=== PATIENT | female | born 1980 | race Asian ===

== ENCOUNTER 2016-09-10 05:42 | Day surgery (SDC) | payer OTHER ==
[~2016-09-10] VITALS: Ht 144.8 cm; Wt 55.9 kg
[2016-09-10] MEDS ORDERED: LIDOCAINE 2% (SDV) 5 ML INJ ONE (07:00)
[2016-09-10] MEDS ORDERED: CEFAZOLIN 1 GM INJ ONE (07:00)
[2016-09-10] MEDS ORDERED: PROPOFOL 200 MG INJ ONE (07:00)
[2016-09-10] MEDS ORDERED: SUCCINYLCHOLINE CHLORIDE 100 MG/5 ML SYG IV ONE (07:00)
[2016-09-10] MEDS ORDERED: SOD CHLORIDE 0.9% 1,000 ML IV SCH (07:30)
[2016-09-10 08:05] VITALS: BP 122/72; PULSE 77; RESP 16; Ht 144.8 cm; Wt 55.9 kg
[2016-09-10] MEDS ORDERED: ESCI10TA PO (09:06)
[2016-09-10] MEDS ORDERED: PANT40TA3 PO (09:07)
[2016-09-10] MEDS ORDERED: FEXO180T61 PO (09:14)
[2016-09-10] MEDS ORDERED: BUPIVACAINE 0.25%/EPI (SDV) 30 ML INJ ONE (09:34)
[2016-09-10] MEDS ORDERED: FENTAnyl 50 MCG/ML VIAL ONE (10:15)
[2016-09-10] MEDS ORDERED: MIDAZOLAM 1 MG/ML 2 ML INJ ONE (10:16)
[2016-09-10] MEDS ORDERED: HYDROmorphONE (0.2 MG/ML) 10ML SYG IV PRN (11:00)
[2016-09-10] MEDS ORDERED: ONDANSETRON 4 MG INJ IV PRN ×2 (11:00→12:00)
[2016-09-10] MEDS ORDERED: METOCLOPRAMIDE 10 MG INJ ONE (11:03)
[2016-09-10] MEDS ORDERED: ONDANSETRON 4 MG INJ ONE ×2 (11:03→12:44)
[2016-09-10] MEDS ORDERED: DEXAMETHASONE 4 MG/ML 1 ML INJ ONE (11:03)
[2016-09-10] MEDS ORDERED: BUPIVACAINE 0.25%/EPI (SDV) 30 ML INJ INJ ONE (11:47)
--- NOTE | 2016-09-10 11:57 | OPR ---
Date/Time of Note Date/Time of Note DATE: 09/10/16 TIME: 11:52 Operative Report Procedure Date: Sep 10, 2016 Preoperative Diagnosis Intraductal papilloma of right breast Postoperative Diagnosis Intraductal papilloma of right breast Operation Performed Excisional biopsy of intraductal papilloma of right breast with wire needle localization Surgeon: QUE SEAMAN MD Anesthesia: general Anesthesiologist: DIVINA COTTRELL MD Estimated Blood Loss: minimal Specimens Right breast mass excision Complications: None Pt Condition Post Procedure: stable Disposition: PACU Indications Patient is a 36-year-old female who presented to the office with a biopsy confirmed intraductal papilloma of the right breast. Patient was scheduled for definitive excisional biopsy with wire needle localization. All risks and benefits of the procedure including, but not limited to: Wound infection, excessive bleeding, postoperative seroma/hematoma formation, mass recurrence, possible need for subsequent excisions and surgeries, etc. were all explained to the patient in full detail. She fully understood and wished to proceed with the procedure. Informed consent was obtained. Operative\Procedure Findings Biopsy clip and needle contained within the specimen in its entirety. Procedure Description Patient was brought to the operating room placed supine on the operating table. Bilateral sequential compression devices were placed on both lower extremities. A dose of broad-spectrum perioperative intravenous antibiotics was given. The surgical site was marked and confirmed with the patient in the holding area. After the induction of smooth general anesthesia the patient's right breast and chest wall were prepped and draped in standard surgical fashion. The area of the prior biopsy and wire needle localization was located approximately the 10 o'clock position of the right breast 8 cm from the areolar border. After performance of the surgical timeout this area was anesthetized with 0.25% Marcaine with epinephrine. A curvilinear incision was made using a 15 blade scalpel and carried down through the skin and dermis using sharp dissection. Flaps were then raised. The wire needle was delivered through the skin into the field. A core of tissue was excised around the needle. Extending posteriorly. The specimen was then transected at its base. There was some fibrous breast tissue located medially. The entire wire needle was located within the specimen. Marking sutures were used to angelique the superior and lateral aspects of the specimen. X-ray was taken and confirmed the biopsy clip within the specimen adjacent to the needle. At this point the wound cavity was irrigated and the irrigant returned clear. Hemostasis was inspected for and noted to be total. Incision was then closed in layers using interrupted 3-0 Vicryl sutures for the dermal layer. The skin was reapproximated using a running subcuticular 4-0 Monocryl suture. Incision was cleaned and Dermabond was applied as well as a sports bra. The patient was then awoke from anesthesia and transferred to the recovery room in stable condition. All counts were correct at the end of the case 2. QUE SEAMAN MD Sep 10, 2016 11:57
[2016-09-10 11:58] VITALS: BP 138/78; PULSE 101; RESP 18
[2016-09-10] MEDS ORDERED: IBUPROFEN 600 MG TAB PO PRN (12:00)
[2016-09-10] MEDS ORDERED: KETOROLAC 30 MG INJ IV PRN (12:00)
[2016-09-10 12:57] VITALS: BP 131/78; PULSE 94; RESP 16
[2016-09-10 19:01] VITALS: BP 131/78; PULSE 94; RESP 16
== END 2016-09-10 14:30 | disposition home or self-care (01) ==
LOC: SDS 05:42
PROVIDERS: ATTEND Surgery
DX: N63 Unspecified lump in breast (principal); D24.1 Benign neoplasm of right breast
CPT/HCPCS: 19120; 84703; 88307; J0690; J1100; J2250; J2405; J2765; J3010; J7999; Z7512; Z7610